=== PATIENT | female | born 1945 | race Asian ===

== ENCOUNTER 2021-12-09 14:51 | Inpatient (IN) | payer OTHER ==
[2021-12-09 15:12] VITALS: BMI 36.9
[2021-12-09 17:41] LABS: HEMATOCRIT 36.1 % (32.4-45.2); HEMOGLOBIN 12.4 GM/dL (10.7-15.3); MCH 31.3 pg (25.7-33.7); MCHC 34.3 g/dl (32.0-36.0); MEAN CELL VOLUME 91.5 fl (80-96); MEAN PLT VOLUME 7.8 fl (7.5-11.1); PLATELET COUNT 214 10^3/uL (134-434); RBC 3.94 M/mm3 (3.60-5.2); RDW 13.8 % (11.6-15.6); WHITE BLOOD COUNT 5.6 K/mm3 (4.0-10.0)
[2021-12-09 17:49] LABS: INR 0.88 (0.83-1.09); PROTHROMBIN TIME (PATIENT) 10.1 SEC (9.7-13.0)
[2021-12-09 17:52] LABS: ACTIVATED PTT 36.6 SECONDS (25.2-36.5)
[2021-12-09] MEDS ORDERED: FUROSEMIDE 40 MG/4 ML INJECTABLE VIAL IVPUSH ONE (17:59)
[2021-12-09 18:01] LABS: CHLORIDE 92 mmol/L (98-107); SODIUM 132 mmol/L (136-145)
[2021-12-09 18:03] LABS: ALBUMIN 4.2 g/dl (3.4-5.0); ANION GAP 8 MMOL/L (8-16); CALCIUM 9.7 mg/dL (8.5-10.1); CO2 31 mmol/L (21-32)
[2021-12-09 18:04] LABS: GLUCOSE,RANDOM 248 mg/dL (74-106); MAGNESIUM 2.8 mg/dL (1.8-2.4)
[2021-12-09 18:06] LABS: CREATININE 1.8 mg/dL (0.55-1.3); SGOT/AST 24 U/L (15-37)
[2021-12-09 18:07] LABS: SGPT/ALT 42 U/L (13-61)
[2021-12-09 18:08] LABS: BILIRUBIN,TOTAL 0.4 mg/dL (0.2-1); TOT PROT 7.9 g/dl (6.4-8.2)
[2021-12-09 18:10] LABS: ALK PHOS 54 U/L (45-117)
[2021-12-09] MEDS ORDERED: ASPIRIN 81 MG CHEWABLE TABLETS PO ONE (18:22)
[2021-12-09] MEDS ORDERED: ASPIRIN 81 MG CHEWABLE TABLETS ONE (19:11)
[2021-12-09] MEDS: INSULIN SLIDING SCALE (NOVOLOG) 1 VIAL SQ SCH (23:59)
[2021-12-10] MEDS ORDERED: FUROSEMIDE 40 MG/4 ML INJECTABLE VIAL IVPUSH SCH (06:00)
[2021-12-10] MEDS ORDERED: HEPARIN NA (PORCINE) 5,000 UNITS/ML 1ML VIAL ONE ×2 (06:21→14:12)
[2021-12-10] MEDS ORDERED: FUROSEMIDE 40 MG/4 ML INJECTABLE VIAL ONE (06:21)
[2021-12-10] MEDS: HEPARIN NA (PORCINE) 5,000 UNITS/ML 1ML VIAL SQ SCH ×3 (06:31→22:29)
[2021-12-10] MEDS: LEVOTHYROXINE NA 88 MCG TABLET (FP) PO SCH (08:00)
[2021-12-10] MEDS: INSULIN SLIDING SCALE (NOVOLOG) 1 VIAL SQ SCH ×4 (08:15→22:34)
[2021-12-10] MEDS ORDERED: ISOSORBIDE MONONITRATE 30 MG TAB.SR.24H (FP) PO SCH (10:00)
[2021-12-10] MEDS ORDERED: PATIENT'S OWN MEDICATION (NON-FORMULARY) (Multivitamin [Poly-Vitamin] 1 EACH Tab.Chew) PO SCH (10:00)
[2021-12-10] MEDS ORDERED: PATIENT'S OWN MEDICATION (NON-FORMULARY) (Calcium Carb/Magnesium Oxid/D3 [Calcium Magnesiu PO SCH (10:00)
[2021-12-10] MEDS ORDERED: ISOSORBIDE MONONITRATE 30 MG TAB.SR.24H (FP) PO ONE (10:40)
[2021-12-10] MEDS ORDERED: SENNOSIDES 8.6MG TABLET (FP) PO ONE (10:40)
[2021-12-10] MEDS ORDERED: SPIRONOLACTONE 25 MG TABLET ONE (10:40)
[2021-12-10] MEDS ORDERED: ASPIRIN 81 MG CHEWABLE TABLETS ONE (10:40)
[2021-12-10] MEDS: EZETIMIBE 10 MG TABLET (FP) PO SCH (10:45)
[2021-12-10] MEDS: SPIRONOLACTONE 25 MG TABLET PO SCH (10:45)
[2021-12-10] MEDS: RANOLAZINE E.R. 1,000 MG TABLET (FP) PO SCH ×2 (10:50→22:30)
[2021-12-10] MEDS: ASPIRIN 81 MG CHEWABLE TABLETS PO SCH (10:50)
[2021-12-10] MEDS: MULTIVITAMINS THER W-MINERALS COMBO TABLET (FP) PO SCH (10:50)
[2021-12-10] MEDS: SENNOSIDES 8.6MG TABLET (FP) PO SCH (10:50)
[2021-12-10] MEDS: VITAMIN B COMPLEX W/C COMBO TABLET (FP) PO SCH (10:51)
[2021-12-10 11:15] LABS: BASO % 0.6 % (0-2.0); EOS % 2.2 % (0-4.5); HEMATOCRIT 34.4 % (32.4-45.2); HEMOGLOBIN 11.9 GM/dL (10.7-15.3); LYMPH % 28.5 % (8-40); MCH 31.6 pg (25.7-33.7); MCHC 34.5 g/dl (32.0-36.0); MEAN CELL VOLUME 91.6 fl (80-96); MEAN PLT VOLUME 7.7 fl (7.5-11.1); NEUT % 60.7 % (42.8-82.8); PLATELET COUNT 207 10^3/uL (134-434); RBC 3.76 M/mm3 (3.60-5.2); RDW 13.8 % (11.6-15.6); WHITE BLOOD COUNT 5.6 K/mm3 (4.0-10.0)
[2021-12-10 11:43] LABS: CREATININE 1.7 mg/dL (0.55-1.3)
[2021-12-10 11:46] LABS: BILIRUBIN,TOTAL 0.6 mg/dL (0.2-1); TOT PROT 7.2 g/dl (6.4-8.2)
[2021-12-10 11:47] LABS: ALBUMIN 3.8 g/dl (3.4-5.0); URIC ACID 9.3 mg/dL (2.6-7.2)
[2021-12-10 11:48] LABS: BLOOD UREA NITROGEN 40.3 mg/dL (7-18); PHOSPHOROUS 4.1 mg/dL (2.5-4.9)
[2021-12-10 11:49] LABS: MAGNESIUM 2.3 mg/dL (1.8-2.4)
[2021-12-10 11:50] LABS: CALCIUM 9.1 mg/dL (8.5-10.1)
[2021-12-10] MEDS: FUROSEMIDE 40 MG TABLET (FP) PO SCH (15:46)
[2021-12-10] MEDS ORDERED: GLYCERIN 1 RECTAL SUPPOSITORY, ADULT PR ONE (15:51)
[2021-12-10] MEDS ORDERED: RANOLAZINE E.R. 500 MG TABLET (FP) ONE (21:27)
[2021-12-10] MEDS: ATORVASTATIN CA 40 MG TABLET (FP) PO SCH (22:29)
[2021-12-11] MEDS: INSULIN SLIDING SCALE (NOVOLOG) 1 VIAL SQ SCH ×4 (06:53→21:45)
[2021-12-11] MEDS: FUROSEMIDE 40 MG TABLET (FP) PO SCH ×2 (06:53→14:58)
[2021-12-11] MEDS: HEPARIN NA (PORCINE) 5,000 UNITS/ML 1ML VIAL SQ SCH ×3 (06:53→21:25)
[2021-12-11] MEDS: LEVOTHYROXINE NA 88 MCG TABLET (FP) PO SCH (06:53)
[2021-12-11 08:20] LABS: BASO % 0.6 % (0-2.0); EOS % 2.5 % (0-4.5); HEMATOCRIT 33.7 % (32.4-45.2); HEMOGLOBIN 11.5 GM/dL (10.7-15.3); LYMPH % 33.6 % (8-40); MCH 31.3 pg (25.7-33.7); MCHC 34.2 g/dl (32.0-36.0); MEAN CELL VOLUME 91.5 fl (80-96); MEAN PLT VOLUME 8.2 fl (7.5-11.1); MONO % 9.4 % (3.8-10.2); NEUT % 53.9 % (42.8-82.8); PLATELET COUNT 215 10^3/uL (134-434); RBC 3.69 M/mm3 (3.60-5.2); RDW 13.5 % (11.6-15.6); WHITE BLOOD COUNT 5.4 K/mm3 (4.0-10.0)
[2021-12-11] MEDS ORDERED: RANOLAZINE E.R. 500 MG TABLET (FP) ONE ×2 (10:13→21:18)
[2021-12-11] MEDS: SPIRONOLACTONE 25 MG TABLET PO SCH (10:36)
[2021-12-11] MEDS: ASPIRIN 81 MG CHEWABLE TABLETS PO SCH (10:36)
[2021-12-11] MEDS: ISOSORBIDE MONONITRATE 30 MG TAB.SR.24H (FP) PO SCH (10:36)
[2021-12-11] MEDS: MAGNESIUM OXIDE 400 MG TABLET (FP) PO SCH (10:36)
[2021-12-11] MEDS: CALCIUM CARBONATE 650 MG TABLET PO SCH (10:36)
[2021-12-11] MEDS: EZETIMIBE 10 MG TABLET (FP) PO SCH (10:37)
[2021-12-11] MEDS: RANOLAZINE E.R. 1,000 MG TABLET (FP) PO SCH ×2 (10:37→21:24)
[2021-12-11] MEDS: VITAMIN B COMPLEX W/C COMBO TABLET (FP) PO SCH (10:37)
[2021-12-11] MEDS: CHOLECALCIFEROL (VIT D3) 1,000 UNIT (25 MCG) TABLET PO SCH (10:37)
[2021-12-11] MEDS: SENNOSIDES 8.6MG TABLET (FP) PO SCH (10:37)
[2021-12-11] MEDS: MULTIVITAMINS THER W-MINERALS COMBO TABLET (FP) PO SCH (10:37)
[2021-12-11 13:19] LABS: CALCIUM 9.1 mg/dL (8.5-10.1)
[2021-12-11 13:22] LABS: BLOOD UREA NITROGEN 44.9 mg/dL (7-18); MAGNESIUM 2.6 mg/dL (1.8-2.4)
[2021-12-11 13:25] LABS: CREATININE 1.6 mg/dL (0.55-1.3); PHOSPHOROUS 4.3 mg/dL (2.5-4.9)
[2021-12-11] MEDS: CARVEDILOL 6.25 MG TABLET (FP) PO SCH (17:19)
[2021-12-11] MEDS: ATORVASTATIN CA 40 MG TABLET (FP) PO SCH (21:24)
[2021-12-11] MEDS: FLUTICASONE PROP 0.05% 16 GM NASAL SPRAY NS SCH (22:34)
[2021-12-12] MEDS: LEVOTHYROXINE NA 88 MCG TABLET (FP) PO SCH (06:23)
[2021-12-12] MEDS: HEPARIN NA (PORCINE) 5,000 UNITS/ML 1ML VIAL SQ SCH ×2 (06:23→13:56)
[2021-12-12] MEDS: FUROSEMIDE 40 MG TABLET (FP) PO SCH ×2 (06:23→13:56)
[2021-12-12] MEDS: INSULIN SLIDING SCALE (NOVOLOG) 1 VIAL SQ SCH ×3 (06:25→18:15)
[2021-12-12 08:02] LABS: HEMATOCRIT 31.4 % (32.4-45.2); HEMOGLOBIN 11.1 GM/dL (10.7-15.3); MCH 31.9 pg (25.7-33.7); MCHC 35.2 g/dl (32.0-36.0); MEAN CELL VOLUME 90.6 fl (80-96); MEAN PLT VOLUME 7.8 fl (7.5-11.1); PLATELET COUNT 200 10^3/uL (134-434); RBC 3.47 M/mm3 (3.60-5.2); RDW 13.6 % (11.6-15.6); WHITE BLOOD COUNT 5.5 K/mm3 (4.0-10.0)
[2021-12-12] MEDS ORDERED: SODIUM CHLORIDE NASAL SPRAY 44 ML BOTTLE NS PRN (08:38)
[2021-12-12 08:58] LABS: BLOOD UREA NITROGEN 46.9 mg/dL (7-18); CALCIUM 8.8 mg/dL (8.5-10.1); MAGNESIUM 2.4 mg/dL (1.8-2.4)
[2021-12-12 09:02] LABS: CREATININE 1.6 mg/dL (0.55-1.3); PHOSPHOROUS 3.9 mg/dL (2.5-4.9)
[2021-12-12] MEDS ORDERED: RANOLAZINE E.R. 500 MG TABLET (FP) ONE (09:26)
[2021-12-12] MEDS: CHOLECALCIFEROL (VIT D3) 1,000 UNIT (25 MCG) TABLET PO SCH (09:30)
[2021-12-12] MEDS: CARVEDILOL 6.25 MG TABLET (FP) PO SCH ×2 (09:30→12:02)
[2021-12-12] MEDS: RANOLAZINE E.R. 1,000 MG TABLET (FP) PO SCH (09:30)
[2021-12-12] MEDS: MAGNESIUM OXIDE 400 MG TABLET (FP) PO SCH (09:30)
[2021-12-12] MEDS: VITAMIN B COMPLEX W/C COMBO TABLET (FP) PO SCH (09:30)
[2021-12-12] MEDS: SPIRONOLACTONE 25 MG TABLET PO SCH (09:30)
[2021-12-12] MEDS: ISOSORBIDE MONONITRATE 30 MG TAB.SR.24H (FP) PO SCH (09:30)
[2021-12-12] MEDS: CALCIUM CARBONATE 650 MG TABLET PO SCH (09:30)
[2021-12-12] MEDS: SENNOSIDES 8.6MG TABLET (FP) PO SCH (09:30)
[2021-12-12] MEDS: MULTIVITAMINS THER W-MINERALS COMBO TABLET (FP) PO SCH (09:30)
[2021-12-12] MEDS: ASPIRIN 81 MG CHEWABLE TABLETS PO SCH (09:30)
[2021-12-12] MEDS: FLUTICASONE PROP 0.05% 16 GM NASAL SPRAY NS SCH (09:31)
[2021-12-12] MEDS: EZETIMIBE 10 MG TABLET (FP) PO SCH ×2 (09:33→12:02)
[2021-12-12 15:01] VITALS: BP 115/52; PULSE 59; TEMP 98.4
== END 2021-12-12 19:00 | disposition home or self-care (01) | DRG 291 ==
LOC: SUPCPDRO 14:51 → JER 14:51 → JERBED 19:08 → J4W 12-10 16:38
PROVIDERS: ADMIT Hospitalist; ATTEND Internal Medicine
DX: I13.0 Hypertensive heart and chronic kidney disease with heart failure and stage 1 through stage 4 chronic kidney disease, or unspecified chronic kidney disease (principal); I50.33 Acute on chronic diastolic (congestive) heart failure; N18.4 Chronic kidney disease, stage 4 (severe); N17.9 Acute kidney failure, unspecified; I25.10 Atherosclerotic heart disease of native coronary artery without angina pectoris; E11.22 Type 2 diabetes mellitus with diabetic chronic kidney disease; E03.9 Hypothyroidism, unspecified; G47.33 Obstructive sleep apnea (adult) (pediatric); E11.65 Type 2 diabetes mellitus with hyperglycemia; E78.5 Hyperlipidemia, unspecified; Z85.3 Personal history of malignant neoplasm of breast; Z96.653 Presence of artificial knee joint, bilateral
CPT/HCPCS: 36415; 71046-TC-FY; 80048; 80053; 82962; 83735; 83880; 84100; 84443; 84484; 84550; 85025; 85027; 85610; 85730; 93005; 93010; 94761; 97116-GP; 97161-GP; 99285-25; C9803-CS; J1644; U0003; U0005